=== PATIENT | male | born 1965 | race Caucasian/White ===

== ENCOUNTER → 2018-05-03 07:03 | Outpatient (CLI) | payer OTHER, SELFPAY ==
[2018-05-03 10:11] LABS: Anion Gap 8 (5-15); BUN 19 mg/dL (7-18); BUN/Creat Ratio 16.5 RATIO (10-20); Calcium,Total 8.7 mg/dL (8.5-10.1); Chloride 104 mmol/L (98-107); Cholesterol 208 mg/dL (200); Creatinine, Serum 1.15 mg/dL (0.70-1.30); EST Glomerular Filtration Rate 71 mL/min (>60); Est Glom Filt Rate - Afr Amer 86 mL/min (>60); Glucose 105 mg/dL (74-106); High Density Lipoprotein 37 mg/dL; Potassium 4.2 mmol/L (3.5-5.1); Sodium Level 140 mmol/L (136-145); Triglycerides 143 mg/dL; Very Low Density Lipoprotein 29 mg/dL (5-40)
== END ==
PROVIDERS: Family Provider Family Medicine; PCP Family Medicine; Referring Provider Family Medicine; Visit Provider Family Medicine
DX: Z13.1 Encounter for screening for diabetes mellitus (principal); Z13.220 Encounter for screening for lipoid disorders
CPT/HCPCS: 36415; 80048; 80061

== ENCOUNTER → 2019-05-17 17:35 | Outpatient (CLI) | payer OTHER, SELFPAY ==
[2019-05-17 18:22] LABS: Anion Gap 6 (5-15); BUN 21 mg/dL (7-18); BUN/Creat Ratio 17.1 RATIO (10-20); Calcium,Total 8.6 mg/dL (8.5-10.1); Chloride 109 mmol/L (98-107); Creatinine, Serum 1.23 mg/dL (0.70-1.30); EST Glomerular Filtration Rate 65 mL/min (>60); Est Glom Filt Rate - Afr Amer 79 mL/min (>60); Glucose 103 mg/dL (74-106); Potassium 3.9 mmol/L (3.5-5.1); Sodium Level 142 mmol/L (136-145)
== END ==
PROVIDERS: PCP Family Medicine; Referring Provider Family Medicine; Visit Provider Family Medicine
DX: I10 Essential (primary) hypertension (principal)
CPT/HCPCS: 36415; 80048

== ENCOUNTER → 2020-11-20 09:49 | Outpatient (CLI) | payer OTHER, SELFPAY ==
[2020-11-20 12:35] LABS: ALB/GLOB Ratio 0.9 RATIO (0.9-2.4); AST(SGOT) 20 U/L (15-37); Alanine Aminotransfer ALT/SGPT 38 U/L (16-61); Albumin, Serum 3.6 g/dL (3.2-5.0); Alkaline Phosphatase 75 U/L (45-117); Anion Gap 4 (5-15); BUN 20 mg/dL (7-18); BUN/Creat Ratio 17.7 RATIO (10-20); Chloride 109 mmol/L (98-107); Cholesterol 224 mg/dL (200); Creatinine, Serum 1.13 mg/dL (0.70-1.30); EST Glomerular Filtration Rate 72 mL/min (>60); Est Glom Filt Rate - Afr Amer 87 mL/min (>60); Globulin 4.2 g/dL (2.2-4.2); Glucose 98 mg/dL (74-106); High Density Lipoprotein 37 mg/dL; PSA,Total - Annual Screen 1.51 ng/mL (0.00-4.00); Potassium 4.3 mmol/L (3.5-5.1); Protein, Total 7.8 g/dL (6.4-8.2); Sodium Level 138 mmol/L (136-145); Triglycerides 136 mg/dL; Very Low Density Lipoprotein 27 mg/dL (5-40)
== END ==
PROVIDERS: PCP Family Medicine; Referring Provider Family Medicine; Visit Provider Family Medicine
DX: I10 Essential (primary) hypertension (principal); Z12.5 Encounter for screening for malignant neoplasm of prostate
CPT/HCPCS: 36415; 80053; 80061; 84153; G0103

== ENCOUNTER → 2022-10-07 | Outpatient (CLI) | payer BC, SELFPAY ==
[2022-10-07 12:13] LABS: Absolute Lymphocyte Count 1.45 X10^3/uL (0.83-4.51); Absolute Neutrophil Count 4.6 X10^3/uL (2.0-7.7); Basophil# 0.03 X10^3/uL; Basophil% 0.4 % (0-1); Eosinophil# 0.22 X10^3/uL; Eosinophils% 3.1 % (0-5); Hematocrit 37.2 % (40-54); Hemoglobin 11.6 g/dL (13.0-16.5); Lymphocyte # 1.45 X10^3/ul (0.83-4.51); Lymphocyte % 20.5 % (19-41); Mean Corp Hgb Conc 31.2 g/dL (32-36); Mean Corpuscular Hgb 25.5 pg (27.0-32.0); Mean Corpuscular Volume 81.8 fL (80-94); Mean Platelet Vol. 10.7 fl (6.2-12.0); Monocyte# 0.77 X10^3/uL; Monocyte% 10.9 % (0-10); NRBC Flagged by Analyzer 0 % (0-5); Neutrophil # 4.59 X10^3/uL (2.7-7.7); Neutrophil % 64.8 % (47-70); Platelet Count 376 K/mm3 (150-450); RBC Distribution Width CV 16.8 % (11.6-14.6); RBC Distribution Width SD 49.5 fl (35.1-43.9); RET-HE 25.2 pg (30-35); Red Blood Count 4.55 M/mm3 (4.6-6.2); Reticulocyte Count 1.42 % (0.5-1.5); White Blood Count 7.1 K/mm3 (4.4-11.0)
[2022-10-07 12:47] LABS: Anion Gap 6 (5-15); BUN 20 mg/dL (7-18); BUN/Creat Ratio 17.5 RATIO (10-20); Calcium,Total 9.1 mg/dL (8.5-10.1); Chloride 106 mmol/L (98-107); Cholesterol 214 mg/dL (200); Creatinine, Serum 1.14 mg/dL (0.70-1.30); EST Glomerular Filtration Rate 71 mL/min (>60); Est Glom Filt Rate - Afr Amer 85 mL/min (>60); Ferritin 6 ng/mL (26-388); Glucose 114 mg/dL (74-106); High Density Lipoprotein 36 mg/dL; Iron 42 ug/dL (65-175); Iron Binding Capacity,Total 380 ug/dL (250-450); PSA,Total - Annual Screen 1.22 ng/mL (0.00-4.00); Potassium 4.1 mmol/L (3.5-5.1); Sodium Level 138 mmol/L (136-145); Triglycerides 216 mg/dL; Very Low Density Lipoprotein 43 mg/dL (5-40)
== END | disposition home or self-care (01) ==
LOC: MFPLAB 10:47
PROVIDERS: PCP Family Medicine; Visit Provider Family Medicine
DX: Z12.5 Encounter for screening for malignant neoplasm of prostate (principal); D64.9 Anemia, unspecified; I10 Essential (primary) hypertension; Z13.220 Encounter for screening for lipoid disorders
CPT/HCPCS: 36415; 80048; 80061; 82728; 83540; 83550; 84153; 85025; 85045; G0103

== ENCOUNTER → 2023-11-30 | Outpatient (CLI) | payer BC, SELFPAY ==
[2023-11-30 10:08] LABS: Absolute Lymphocyte Count 1.19 X10^3/uL (0.83-4.51); Basophil# 0.02 X10^3/uL; Basophil% 0.3 % (0-1); Eosinophil# 0.45 X10^3/uL; Eosinophils% 6.8 % (0-5); Hematocrit 42.2 % (40-54); Hemoglobin 13.3 g/dL (13.0-16.5); Lymphocyte # 1.19 X10^3/ul (0.83-4.51); Lymphocyte % 18.1 % (19-41); Mean Corp Hgb Conc 31.5 g/dL (32-36); Mean Corpuscular Volume 85.8 fL (80-94); Mean Platelet Vol. 11.2 fl (6.2-12.0); Monocyte# 0.96 X10^3/uL; Monocyte% 14.6 % (0-10); NRBC Flagged by Analyzer 0 % (0-5); Neutrophil # 3.95 X10^3/uL (2.7-7.7); Neutrophil % 59.9 % (47-70); Platelet Count 270 K/mm3 (150-450); RBC Distribution Width CV 15.9 % (11.6-14.6); RBC Distribution Width SD 50.1 fl (35.1-43.9); Red Blood Count 4.92 M/mm3 (4.6-6.2); White Blood Count 6.6 K/mm3 (4.4-11.0)
[2023-11-30 10:26] LABS: ALB/GLOB Ratio 0.9 RATIO (0.9-2.4); AST(SGOT) 18 U/L (15-37); Alanine Aminotransfer ALT/SGPT 36 U/L (16-61); Albumin, Serum 3.6 g/dL (3.2-5.0); Alkaline Phosphatase 86 U/L (45-117); Anion Gap 6 (5-15); BUN 21 mg/dL (7-18); BUN/Creat Ratio 17.4 RATIO (10-20); Calcium,Total 8.8 mg/dL (8.5-10.1); Chloride 107 mmol/L (98-107); Cholesterol 206 mg/dL (200); Creatinine, Serum 1.21 mg/dL (0.70-1.30); EST Glomerular Filtration Rate 66 mL/min (>60); Est Glom Filt Rate - Afr Amer 79 mL/min (>60); Ferritin 9 ng/mL (26-388); Glucose 102 mg/dL (74-106); High Density Lipoprotein 33 mg/dL; Iron 60 ug/dL (65-175); Protein, Total 7.6 g/dL (6.4-8.2); Sodium Level 138 mmol/L (136-145); Triglycerides 204 mg/dL; Very Low Density Lipoprotein 41 mg/dL (5-40)
[2023-12-01 15:56] LABS: PSA,Total - Annual Screen 1.48 ng/mL (0.00-4.00)
== END | disposition home or self-care (01) ==
LOC: MTLAB 07:37
PROVIDERS: PCP Family Medicine; Referring Provider Family Medicine; Visit Provider Family Medicine
DX: Z00.00 Encounter for general adult medical examination without abnormal findings (principal); Z12.5 Encounter for screening for malignant neoplasm of prostate
CPT/HCPCS: 36415; 80053; 80061; 82728; 83540; 84153; 85025; G0103

== ENCOUNTER → 2024-12-19 | Outpatient (CLI) | payer BC, SELFPAY ==
--- OUTSIDE RECORDS SUMMARY | 2024-12-19 10:44 | XMS RPT_ITS | CCD ---
Author Organization [facility] ion [facility] Care Team Providers Care Machine Packer Name Role Phone Jason Patel Referring Unavailable Jason Patel Attending Unavailable Jason Patel Primary Care Unavailable Results Test Name Value Interpretation Reference Range Facility PSA,Total - Annual Screenon 12-01-2023 PSA,TOT SCREEN 1.48 ng/mL Normal 0.00-4.00 [facility] Comment on above: Order Comment: Order Date: 12/01/23 Order Info: [id number] - PSA Result Comment: This test was performed using the TPSA assay method for the [employer] chemistry system. Values obtained with different assay methods cannot be used interchangably. When changing PSA assays in the course of monitoring a patient, additional sequential testing should be carried out to confirm baseline values. Performed By: #### L 501.9910 #### [facility] [address] [place], [place], [id number] CBC W/Diff, Automatedon Absolute Lymph 1.19 X10 3/uL Normal 0.83-4.51 [facility] Comment on above: Order Comment: Order Date: 11/29/23 Order Info: 0184-1 - CBCD Performed By: #### L 500.4050, L100.0100, L503.6150, L500.4100, L503.6550 #### [facility] [address] [place], [place], [id number] Absolute Neut 4.0 X10 3/uL Normal 2.0-7.7 [facility] Comment on above: Order Comment: Order Date: 11/29/23 Order Info: 0184-1 - CBCD Performed By: #### L 500.4050, L100.0100, L503.6150, L500.4100, L503.6550 #### [facility] [address] [place], [address] Basophils/100 WBC (Bld) 0.3 % Normal 0-1 [facility] [place] Comment on above: Order Comment: Order Date: 11/29/23 Order Info: 018- - CBCD Performed By: #### L 500.4050, L100.0100, L503.6150, L500.4100, L503.6550 #### [facility] [address] [place], [address] Eosinophils/100 WBC (Bld) 6.8 % High 0-5 [facility] Comment on above: Order Comment: Order Date: 11/29/23 Order Info: 01805-30 - CBCD Performed By: #### L 500.4050, L100.0100, L503.6150, L500.4100, L503.6550 #### [facility] [address] [place], [address] Erythrocyte distribution width (RBC) [Ratio] 15.9 % High 11.6-14.6 [facility] Comment on above: Order Comment: Order Date: 11/29/23 Order Info: 018- - CBCD Performed By: #### L 500.4050, L100.0100, L503.6150, L500.4100, L503.6550 #### [facility] [address] [place], [address] Hematocrit (Bld) [Volume fraction] 42.2 % Normal 40-54 [facility] Comment on above: Order Comment: Order Date: 11/29/23 Order Info: 018- - CBCD Performed By: #### L 500.4050, L100.0100, L503.6150, L500.4100, L503.6550 #### [facility] [address] [place], [address] Hemoglobin (Bld) [Mass/Vol] 13.3 g/dL Normal 13.0-16.5 [facility] Comment on above: Order Comment: Order Date: 11/29/23 Order Info: 01805-30 - CBCD Performed By: #### L 500.4050, L100.0100, L503.6150, L500.4100, L503.6550 #### [facility] [address] [place], [address] IG% 0.300 Normal 0.0-0.9 [facility] Comment on above: Order Comment: Order Date: 11/29/23 Order Info: 01805-30 - CBCD Result Comment: IG% - Immature Granulocytes (promyelocytes, myelocytes and metamyelocytes) > 1% indicates that a LEFT SHIFT is Present. Performed By: #### L 500.4050, L100.0100, L503.6150, L500.4100, L503.6550 #### [facility] [address] [place], [address] Lymphocytes/100 WBC (Bld) 18.1 % Low 19-41 [facility] Comment on above: Order Comment: Order Date: 11/29/23 Order Info: 01805-30 - CBCD Performed By: #### L 500.4050, L100.0100, L503.6150, L500.4100, L503.6550 #### [facility] [address] [place], [address] MCH (RBC) [Entitic mass] 27.0 pg Normal 27.0-32.0 [facility] Comment on above: Order Comment: Order Date: 11/29/23 Order Info: 01805-30 - CBCD Performed By: #### L 500.4050, L100.0100, L503.6150, L500.4100, L503.6550 #### [facility] [address] [place], [address] MCHC (RBC) [Mass/Vol] 31.5 g/dL Low 32-[address] [facility] Comment on above: Order Comment: Order Date: 11/29/23 Order Info: 0184-1 - CBCD Performed By: #### L 500.4050, L100.0100, L503.6150, L500.4100, L503.6550 #### [facility] [address] [place], [address] MCV (RBC) [Entitic vol] 85.8 fL Normal 80-94 [facility] [place] Comment on above: Order Comment: Order Date: 11/29/23 Order Info: 0184- - CBCD Performed By: #### L 500.4050, L100.0100, L503.6150, L500.4100, L503.6550 #### [facility] [address] [place], [address] Monocytes/100 WBC (Bld) 14.6 % High 0-10 [facility] Comment on above: Order Comment: Order Date: 11/29/23 Order Info: 0184- - CBCD Performed By: #### L 500.4050, L100.0100, L503.6150, L500.4100, L503.6550 #### [facility] [address] [place], [address] Neutrophils/100 WBC (Bld) 59.9 % Normal 47-70 [facility] Comment on above: Order Comment: Order Date: 11/29/23 Order Info: 0184-1 - CBCD Performed By: #### L 500.4050, L100.0100, L503.6150, L500.4100, L503.6550 #### [facility] [address] [place], [address] Nucleated RBC (Bld) [#/Vol] 0 10*3/uL Normal 0-5 [facility] Comment on above: Order Comment: Order Date: 11/29/23 Order Info: 0184-1 - CBCD Performed By: #### L 500.4050, L100.0100, L503.6150, L500.4100, L503.6550 #### [facility] [address] [place], [address] Platelet mean volume (Bld) [Entitic vol] 11.2 fL Normal 6.2-12.0 [facility] Comment on above: Order Comment: Order Date: 11/29/23 Order Info: 0184- - CBCD Performed By: #### L 500.4050, L100.0100, L503.6150, L500.4100, L503.6550 #### [facility] [address] [place], [address] Platelets (Bld) [#/Vol] 270 10*3/uL Normal 150-450 [facility] Comment on above: Order Comment: Order Date: 11/29/23 Order Info: 0184- - CBCD Performed By: #### L 500.4050, L100.0100, L503.6150, L500.4100, L503.6550 #### [facility] [address] [place], [address] RBC (Bld) [#/Vol] 4.92 10*6/uL Normal 4.6-6.2 [facility] Comment on above: Order Comment: Order Date: 11/29/23 Order Info: 0184- - CBCD Performed By: #### L 500.4050, L100.0100, L503.6150, L500.4100, L503.6550 #### [facility] [address] [place], [address] RDW SD 50.1 fl High 35.1-43.9 [facility] Comment on above: Order Comment: Order Date: 11/29/23 Order Info: 0184-1 - CBCD Performed By: #### L 500.4050, L100.0100, L503.6150, L500.4100, L503.6550 #### [facility] [address] [place], [address] WBC (Bld) [#/Vol] 6.6 10*3/uL Normal 4.4-11.0 [facility] Comment on above: Order Comment: Order Date: 11/29/23 Order Info: 0184-1 - CBCD Performed By: #### L 500.4050, L100.0100, L503.6150, L500.4100, L503.6550 #### [facility] [address] [place], [address] Comprehensive Metabolic Prof ilon 11-30-2023 Albumin [Mass/Vol] 3.6 g/dL Normal 3.2-5.0 [facility] Comment on above: Order Comment: Order Date: 11/29/23 Order Info: 0786-1 - CMP Order Info: [id number] - LIPID Order Info: 2497-05 - Order Info: [id number] - ISAIAS Performed By: #### L 500.4050, L100.0100, L503.6150, L500.4100, L503.6550 #### [facility] [address] [place], [address] Albumin/Globulin [Mass ratio] 0.9 {ratio} Normal 0.9-2.4 [facility] Comment on above: Order Comment: Order Date: 11/29/23 Order Info: 0786-1 - CMP Order Info: [id number] - LIPID Order Info: 2497-05 - FE Order Info: 4 - ISAIAS Performed By: #### L 500.4050, L100.0100, L503.6150, L500.4100, L503.6550 #### [facility] [address] [place], [address] ALK P 86 U/L Normal 45-117 [facility] Comment on above: Order Comment: Order Date: 11/29/23 Order Info: 785-03 - CMP Order Info: - LIPID Order Info: [id number] Order Info: [id number] - ISAIAS Performed By: #### L 500.4050, L100.0100, L503.6150, L500.4100, L503.6550 #### [facility] [address] [place], [address] ALT [Catalytic activity/Vol] 36 U/L Normal 16-61 [facility] Comment on above: Order Comment: Order Date: 11/29/23 Order Info: 785-03 - CMP Order Info: - LIPID Order Info: [id number] Order Info: [id number] - ISAIAS Performed By: #### L 500.4050, L100.0100, L503.6150, L500.4100, L503.6550 #### [facility] [address] [place], [address] AST [Catalytic activity/Vol] 18 U/L Normal 15-37 [facility] Comment on above: Order Comment: Order Date: 11/29/23 Order Info: 785-03 - CMP Order Info: - LIPID Order Info: 2497-05 Order Info: 2275-05 - ISAIAS Performed By: #### L 500.4050, L100.0100, L503.6150, L500.4100, L503.6550 #### [facility] [address] [place], [address] Bilirubin [Mass/Vol] 0.40 mg/dL Normal 0.20-1.00 [facility] Comment on above: Order Comment: Order Date: 11/29/23 Order Info: 785-03 - CMP Order Info: - LIPID Order Info: 2497-05 Order Info: 2275-05 - ISAIAS Result Comment: For patients on eltrombopag therapy, use of Dimension [place] TBIL is not recommended. Performed By: #### L 500.4050, L100.0100, L503.6150, L500.4100, L503.6550 #### [facility] [address] [place], [address] BUN/CRE 17.4 RATIO Normal 10-20 [facility] Comment on above: Order Comment: Order Date: 11/29/23 Order Info: 0786-1 - CMP Order Info: [id number] - LIPID Order Info: 2497-05 - FE Order Info: 2275-05 - ISAIAS Performed By: #### L 500.4050, L100.0100, L503.6150, L500.4100, L503.6550 #### [facility] [address] [place], [place], [id number] (390) CA,Total 8.8 mg/dL Normal 8.5-10.1 [facility] Comment on above: Order Comment: Order Date: 11/29/23 Order Info: 07- - CMP Order Info: [id number] - LIPID Order Info: 2497-05 - FE Order Info: 2275-05 - ISAIAS Performed By: #### L 500.4050, L100.0100, L503.6150, L500.4100, L503.6550 #### [facility] [address] [place], [address] Chloride [Moles/Vol] 107 mmol/L Normal 98-107 [facility] Comment on above: Order Comment: Order Date: 11/29/23 Order Info: 0786- - CMP Order Info: [id number] - LIPID Order Info: 2497-05 - FE Order Info: 2275-05 - ISAIAS Performed By: #### L 500.4050, L100.0100, L503.6150, L500.4100, L503.6550 #### [facility] [address] [place], [address] CO2 [Moles/Vol] 25.0 mmol/L Normal 21.0-32.0 [facility] Comment on above: Order Comment: Order Date: 11/29/23 Order Info: 0786-1 - CMP Order Info: [id number] - LIPID Order Info: 2497-05 Order Info: 2275-05 ISAIAS Performed By: #### L 500.4050, L100.0100, L503.6150, L500.4100, L503.6550 #### [facility] [address] [place], [address] Creatinine [Mass/Vol] 1.21 mg/dL Normal 0.70-1.[address] [facility] Comment on above: Order Comment: Order Date: 11/29/23 Order Info: 785-03 - CMP Order Info: - LIPID Order Info: 2497-05 Order Info: 2275-05 - ISAIAS Result Comment: The validity of the calculated GFR GFRAA in patients over 70 years has not been determined. Clinical correlation is essential. Performed By: #### L 500.4050, L100.0100, L503.6150, L500.4100, L503.6550 #### [facility] [address] [place], [address] EST GFR - AA 79 mL/min Normal >60 [facility] Comment on above: Order Comment: Order Date: 11/29/23 Order Info: 785-03 - CMP Order Info: [id number] - LIPID Order Info: 2497-05 Order Info: 2275-05 - ISAIAS Result Comment: Afri can [place] GFR Calc Performed By: #### L 500.4050, L100.0100, L503.6150, L500.4100, L503.6550 #### [facility] [address] [place], [address] GAP 6 Normal 5-15 [facility] Comment on above: Order Comment: Order Date: 11/29/23 Order Info: 07 - CMP Order Info: [id number] - LIPID Order Info: 2497-05 Order Info: 2275-05 - ISAIAS Performed By: #### L 500.4050, L100.0100, L503.6150, L500.4100, L503.6550 #### [facility] [address] [place], [address] GFR/1.73 sq M.predicted among non-blacks MDRD (S/P/Bld) [Vol rate/Area] 66 mL/min/{1.73_m2} Normal >60 [facility] Comment on above: Order Comment: Order Date: 11/29/23 Order Info: 785- - CMP Order Info: - LIPID Order Info: 2497-05 Order Info: 2275-05 - ISAIAS Result Comment: Non- GFR Calc Performed By: #### L 500.4050, L100.0100, L503.6150, L500.4100, L503.6550 #### [facility] [address] [place], [address] Globulin (S) [Mass/Vol] 4.0 g/dL Normal 2.2-4.2 [facility] Comment on above: Order Comment: Order Date: 11/29/23 Order Info: 785-03 - CMP Order Info: - LIPID Order Info: 2497-05 Order Info: 2275-05 - ISAIAS Performed By: #### L 500.4050, L100.0100, L503.6150, L500.4100, L503.6550 #### [facility] [address] [place], [address] Glucose [Mass/Vol] 102 mg/dL Normal 74-106 [facility] Comment on above: Order Comment: Order Date: 11/29/23 Order Info: 785-03 - CMP Order Info: - LIPID Order Info: 2497-05 Order Info: 2275-05 - ISAIAS Result Comment: Fast ing Glucose result from 100 to 125 mg/dL suggests IMPAIRED HOMEOSTASIS per A.D.A. criteria. Performed By: #### L 500.4050, L100.0100, L503.6150, L500.4100, L503.6550 #### [facility] [address] [place], [address] Potassium [Moles/Vol] 4.0 mmol/L Normal 3.5-5.[address] [facility] Comment on above: Order Comment: Order Date: 11/29/23 Order Info: 07-1 - CMP Order Info: [id number] - LIPID Order Info: 2497-05 - FE Order Info: 4 - ISAIAS Performed By: #### L 500.4050, L100.0100, L503.6150, L500.4100, L503.6550 #### [facility] [address] [place], [address] Sodium [Moles/Vol] 138 mmol/L Normal 136-145 [facility] Comment on above: Order Comment: Order Date: 11/29/23 Order Info: 785-03 - CMP Order Info: [id number] - LIPID Order Info: 2497-05 - FE Order Info: 2275-05 - ISAIAS Performed By: #### L 500.4050, L100.0100, L503.6150, L500.4100, L503.6550 #### [facility] [address] [place], [address] T PROT 7.6 g/dL Normal 6.4-8.2 [facility] Comment on above: Order Comment: Order Date: 11/29/23 Order Info: 0786- - CMP Order Info: [id number] - LIPID Order Info: [id number] - FE Order Info: 4 - ISAIAS Performed By: #### L 500.4050, L100.0100, L503.6150, L500.4100, L503.6550 #### [facility] [address] [place], [address] Urea nitrogen [Mass/Vol] 21 mg/dL High 7-18 [facility] Comment on above: Order Comment: Order Date: 11/29/23 Order Info: 07-1 - CMP Order Info: [id number] - LIPID Order Info: [id number] - FE Order Info: 2275-05 - ISAIAS Performed By: #### L 500.4050, L100.0100, L503.6150, L500.4100, L503.6550 #### [facility] [address] [place], [address] Ferritinon 11-30-2023 Ferritin [Mass/Vol] 9 ng/mL Low 26-388 [facility] Comment on above: Order Comment: Order Date: 11/29/23 Order Info: 785-03 - CMP Order Info: - LIPID Order Info: [id number] - FE Order Info: 2275-05 - ISAIAS Performed By: #### L 500.4050, L100.0100, L503.6150, L500.4100, L503.6550 #### [facility] [address] [place], [place], [id number] Ironon 11-30-2023 Iron [Mass/Vol] 60 ug/dL Low 65-175 [facility] Comment on above: Order Comment: Order Date: 11/29/23 Order Info: 785-03 - CMP Order Info: - LIPID Order Info: 2497-05 - FE Order Info: 2275-05 - ISAIAS Performed By: #### L 500.4050, L100.0100, L503.6150, L500.4100, L503.6550 #### [facility] [address] [place], [address] Lipid Profileon 11-30-2023 Cholesterol [Mass/Vol] 206 mg/dL High 200 [facility] Comment on above: Order Comment: Order Date: 11/29/23 Order Info: 785-03 - CMP Order Info: - LIPID Order Info: 2497-05 - FE Order Info: 2275-05 - ISAIAS Result Comment: <200 mg/dL Desirable 200-240 mg/dL Borderline >240 mg/dL High Risk Performed By: #### L 500.4050, L100.0100, L503.6150, L500.4100, L503.6550 #### [facility] [address] [place], [address] Cholesterol in HDL [Mass/Vol] 33 mg/dL Low [facility] Comment on above: Order Comment: Order Date: 11/29/23 Order Info: 0786- - CMP Order Info: [id number] - LIPID Order Info: 2497-05 Order Info: 2275-05 - ISAIAS Result Comment: The drugs N-Acetylcysteine and Metamizole may falsely depress this assay. Reference Range HDL <40 mg/dL Low HDL Cholesterol HDL >or= 60 mg/dL High HDL Cholesterol Performed By: #### L 500.4050, L100.0100, L503.6150, L500.4100, L503.6550 #### [facility] [address] [place], [address] Cholesterol in LDL [Mass/Vol] 132 mg/dL High 0-130 [facility] Comment on above: Order Comment: Order Date: 11/29/23 Order Info: 07 - CMP Order Info: - LIPID Order Info: [id number] Order Info: [id number] - ISAIAS Performed By: #### L 500.4050, L100.0100, L503.6150, L500.4100, L503.6550 #### [facility] [address] [place], [address] Cholesterol in VLDL [Mass/Vol] 41 mg/dL High 5-40 [facility] Comment on above: Order Comment: Order Date: 11/29/23 Order Info: 07 - CMP Order Info: - LIPID Order Info: [id number] Order Info: [id number] - ISAIAS Performed By: #### L 500.4050, L100.0100, L503.6150, L500.4100, L503.6550 #### [facility] [address] [place], [address] Triglyceride [Mass/Vol] 204 mg/dL High [facility] Comment on above: Order Comment: Order Date: 11/29/23 Order Info: 0786-1 - CMP Order Info: [id number] - LIPID Order Info: 2498-4 - FE Order Info: 2276-4 - ISAIAS Result Comment: The drugs N-Acetylcysteine and Metamizole may falsely depress this assay. Serum Triglycerides Reference Interval Normal <150 mg/dL Borderline high 150 - 199 mg/dL High 200 - 499 mg/dL Very High > or = 500 mg/dL Performed By: #### L 500.4050, L100.0100, L503.6150, L500.4100, L503.6550 #### [facility] [address] [place], [address] Absolute lymphocyte countOrd ered By: Avel Patel on 10-07-2022 Lymphocytes Auto (Unsp spec) [#/Vol] 1.45 10*3/uL 0.83-4.51 [facility] Basophil percentageOrdered B y: Avel Patel on 10-07-2022 Basophils/100 WBC (Bld) 0.4 % 0-1 [facility] Chloride [Moles/Vol] 106 mmol/L 98-107 [facility] Cholesterol [Mass/Vol] 214 mg/dL <200 [facility] Comment on above: <200 mg/dL Desirable 200-240 mg/dL Borderline >240 mg/dL High Risk Eosinophils/100 WBC (Bld) 3.1 % 0-5 [facility] Glucose [Mass/Vol] 114 mg/dL 74-106 [facility] Comment on above: Fasting Glucose resu lt from 100 to 125 mg/dL suggests IMPAIRED HOMEOSTASIS per A.D.A. criteria. Neutrophils (Bld) [#/Vol] 4.6 10*3/uL 2.0-7.7 [facility] Neutrophils/100 WBC (Bld) 64.8 % 47-70 [facility] Potassium [Moles/Vol] 4.1 mmol/L 3.5-5.[address] [facility] Sodium [Moles/Vol] 138 mmol/L 136-145 [facility] Triglyceride [Mass/Vol] 216 mg/dL <199 [facility] Comment on above: The drugs N-Acetylcy steine and Metamizole may falsely depress this assay.Serum Triglycerides Reference Interval Normal <150 mg/dL Borderline high 150 - 199 mg/dL High 200 - 499 mg/dL Very High > or = 500 mg/dL WBC (Bld) [#/Vol] 7.1 10*3/uL 4.4-11.0 [facility] Blood erythrocytes count (nu mber/volume)Ordered By: Avel Patel on 10-07-2022 RBC (Bld) [#/Vol] 4.55 10*6/uL 4.6-6.2 [facility] Blood hemoglobin measurement (mass/volume)Ordered By: Avel Patel on 10-07-2022 Hemoglobin (Bld) [Mass/Vol] 11.6 g/dL 13.0-16.5 [facility] Blood lymphocytes/100 leukoc ytesOrdered By: Avel Patel on 10-07-2022 Lymphocytes/100 WBC (Bld) 20.5 % 19-41 [facility] Blood monocytes/100 leukocyt esOrdered By: Avel Patel on 10-07-2022 Monocytes/100 WBC (Bld) 10.9 % 0-10 [facility] [place] Blood platelet mean volumeOr dered By: Avel Patel on 10-07-2022 Platelet mean volume (Bld) [Entitic vol] 10.7 fL 6.2-12.0 [facility] Determination of erythrocyte mean corpuscular volume (MCV)Ordered By: Avel Patel on 10-07-2022 MCV (RBC) [Entitic vol] 81.8 fL 80-94 [facility] Hematocrit Auto (Bld) [Volum e fraction]Ordered By: Avel Patel on 10-07-2022 Hematocrit (Bld) [Volume fraction] 37.2 % 40-54 [facility] Hemoglobin in reticulocytes (mass per reticulocyte)Ordered By: Avel Patel on 10-07-2022 Hemoglobin (Reticulocytes) [Entitic mass] 25.2 pg 30-35 [facility] Iron measurement (mass/mass) Ordered By: Avel Patel on 10-07-2022 Iron (Unsp spec) [Mass/Mass] 42 ug/dL 65-175 [facility] - Chemistry and C hemistry - challengeOrdered By: Avel Patel on 10-07-2022 CO2 [Moles/Vol] 26.0 mmol/L 21.0-32.0 [facility] Urea nitrogen/Creatinine [Mass ratio] 17.5 mg/mg 10-20 [facility] - Hematology and Cell countsOrdered By: Avel Patel on 10-07-2022 Erythrocyte distribution width (RBC) [Entitic vol] 49.5 fL 35.1-43.9 [facility] Erythrocyte distribution width (RBC) [Ratio] 16.8 % 11.6-14.6 [facility] Immature granulocytes/100 WBC (Bld) 0.300 % 0.0-0.9 [facility] Comment on above: IG% - Immature Granu locytes (promyelocytes, myelocytes and metamyelocytes) > 1% indicates that a LEFT SHIFT is Present. MCH (RBC) [Entitic mass] 25.5 pg 27.0-32.0 [facility] Nucleated RBC/100 WBC (Bld) [Ratio] 0 % 0-5 [facility] MCHC Auto (RBC) [Mass/Vol]Or dered By: Avel Patel on 10-07-2022 MCHC (RBC) [Mass/Vol] 31.2 g/dL 32-[address] [facility] No Panel InformationOrdered By: Avel Patel on 10-07-2022 Estimated GFR (MDRD) Amer 85 mL/min >60 [facility] Comment on above: GFR Calc Estimated GFR (MDRD) Non-Af Amer 71 mL/min >60 [facility] Comment on above: Non- GFR Calc Immature Reticulocyte Fraction 28.20 % 3.00-15.90 [facility] Prostate Specific Antigen Screen 1.22 ng/mL 0.00-4.00 [facility] Comment on above: This test was perfor med using the TPSA assay method for the[facility] chemistry system. Values obtained with differentassay methods cannot be used interchangably.When changing PSA assays in the course of monitoring apatient, additional sequential testing should be carriedout to confirm baseline values. Reticulocyte Count 1.42 % 0.5-1.5 [facility] Total Iron Binding Capacity 380 ug/dL 250-450 [facility] Platelets bldOrdered By: Abbi yahaira Amanda on 10-07-2022 Platelets (Bld) [#/Vol] 376 10*3/uL 150-450 [facility] Serum or plasma calcium brigid urement (mass/volume)Ordered By: Avel Patel on 10-07-2022 Calcium [Mass/Vol] 9.1 mg/dL 8.5-10.1 [facility] Serum or plasma cholesterol in HDL measurement (mass/volume)Ordered By: Avel Patel on 10-07-2022 Cholesterol in HDL [Mass/Vol] 36 mg/dL >40 [facility] Comment on above: The drugs N-Acetylcy steine and Metamizole may falsely depress this assay. Reference Range HDL <40 mg/dL Low HDL Cholesterol HDL >or= 60 mg/dL High HDL Cholesterol Serum or plasma cholesterol in VLDL measurement (mass/volume)Ordered By: Avel Patel on 10-07-2022 Cholesterol in VLDL [Mass/Vol] 43 mg/dL 5-40 [facility] Serum or plasma creatinine m easurement (mass/volume)Ordered By: Avel Patel on 10-07-2022 Creatinine [Mass/Vol] 1.14 mg/dL 0.70-1.[address] [facility] Comment on above: The validity of the calculated GFR & GFRAA in patients over 70 years has not been determined. Clinical correlation is essential. Serum or plasma ferritin courtney surement (mass/volume)Ordered By: Avel Patel on 10-07-2022 Ferritin [Mass/Vol] 6 ng/mL 26-388 [facility] Serum or plasma low density lipoprotein (LDL) cholesterol measurement (mass/volume)Ordered By: Avel Patel on 10-07-2022 Cholesterol in LDL [Mass/Vol] 135 mg/dL 0-130 [facility] Serum or plasma urea nitroge n measurement (mass/volume)Ordered By: Avel Patel on 10-07-2022 Urea nitrogen [Mass/Vol] 20 mg/dL 7-18 [facility] Thin prep Papanicolaou smear with manual screeningOrdered By: Avel Patel on 10-07-2022 Thin prep Papanicolaou smear with manual screening 6 5-15 [facility] Encounters Encounter Date Encounter Type Care Provider Facility Start: 12-27-2023 Encounter for genera l adult medical examination without abnormal findings Jason Patel [facility] Start: 11-30-2023 End: 11-30-2023 ambulatory Jason Amanda Facility:[facility] Start: 10-07-2022 End: 10-07-2022 ambulatory [facility] Work Phone: Start: 10-07-2022 End: 10-07-2022 Patient encounter procedure [facility] [place] Family Payers Date Payer Category Payer Self-pay [id number] 2023 Unknown [id number] [employer] [id number] Unknown [facility] [id number] Unknown [id number] Social History Date Type Detail Facility Tobacco smoking stat [facility] Unknown if ever smoked [facility] Work Phone: Start: 1965 Sex Assigned At Male [facility] [place] Evaluation note Note Date & Type Note Facility Evaluation note No assessment information availa ble [facility] Work Phone: Summary Purpose Family History No Family History Records Found Advance Directives No Advanced Directives Records Found Additional Source Comments Care Teams (unrecognized sec tion and content) Team Status: Active Member Role Status Dates Dr. Avel Patel MD Family Provider Active Dr. Avel Patel MD Primary Care Provider Activ e Team Status: Inactive Member Role Status Dates Dr. Avel Patel MD Primary Care Provider, Atte nding Provider Active Goals (unrecognized section and content) Goals may be documented in a n alternate section (unrecognized sect ion and content) No Status Records Found INFORMATION SOURCE (unrecogn ized section and content) DATE CREATED AUTHOR 12/29/2023 [facility] FOR RECORDS PERTAINING TO PATIENTS WHO ARE OR HAVE BEEN ENROLLED IN A CHEMICAL DEPENDENCY/SUBSTANCEABUSE PROGRAM, SOME INFORMATION MAY BE OMITTED. This clinical summary was aggregated from multiple sources. Caution should be exercised in using it in the provision of clinical care. This summary normalizes information from multiple sources, and as a consequence, information in this document may materially change the coding, format and clinical context of patient data. In addition, data may be omitted in some cases. CLINICAL DECISIONS SHOULD BE BASED ON THE PRIMARY CLINICAL RECORDS. [employer] [facility]. provides no warranty or guarantee of the accuracy or completeness of information in this document.
[2024-12-19 12:14] LABS: Hematocrit 40.7 % (40-54); Hemoglobin 13.6 g/dL (13.0-16.5); Immature Granulocytes Count 0.020 X10^3/uL (0.0-0.0); Mean Corp Hgb Conc 33.4 g/dL (32-36); Mean Corpuscular Volume 90.4 fL (80-94); Mean Platelet Vol. 11.4 fl (6.2-12.0); NRBC Flagged by Analyzer 0 % (0-5); Platelet Count 294 K/mm3 (150-450); RBC Distribution Width CV 14.3 % (11.6-14.6); RBC Distribution Width SD 47.7 fl (35.1-43.9); Red Blood Count 4.50 M/mm3 (4.6-6.2); White Blood Count 6.6 K/mm3 (4.4-11.0)
[2024-12-19 14:14] LABS: AST(SGOT) 25 U/L (<=37); Alanine Aminotransfer ALT/SGPT 30 U/L (<=46); Albumin, Serum 4.3 g/dL (3.5-5.0); Alkaline Phosphatase 86 U/L (40-129); Anion Gap 11 (5-15); BUN 20 mg/dL (4-19); BUN/Creat Ratio 19.0 RATIO (10-20); Calcium,Total 9.3 mg/dL (7.6-11.0); Carbon Dioxide 23.6 mmol/L (21.0-32.0); Chloride 105 mmol/L (98-108); Cholesterol 197 mg/dL (<=200); Ferritin 22 ng/mL (37-417); Globulin 3.3 g/dL (2.2-4.2); Glucose 110 mg/dL (70-99); Low Density Lipoprotein Calc. 131 mg/dL; PSA,Total - Annual Screen 1.40 ng/mL (0.02-4.00); Potassium 4.3 mmol/L (3.3-5.1); Triglycerides 164 mg/dL; Very Low Density Lipoprotein 33 mg/dL (5-40); cholesterol:hdl ratio screen 5.47
[2024-12-19 14:45] LABS: Iron 108 ug/dL (65-175)
== END | disposition home or self-care (01) ==
LOC: MFPLAB 09:46
PROVIDERS: PCP Family Medicine; Visit Provider Family Medicine
DX: Z00.00 Encounter for general adult medical examination without abnormal findings (principal)
CPT/HCPCS: 36415; 80053; 80061; 82728; 83540; 84153; 85025; G0103